=== PATIENT | male | born 1995 | race Caucasian/White ===

== ENCOUNTER 2023-06-23 12:13 | Emergency (ER) | payer OTHER, SELFPAY ==
[2023-06-23 12:18] VITALS: BP 127/74; PULSE 80; RESP 18; TEMP 36.5; O2SAT 98; BMI 29.3
--- NOTE | 2023-06-23 12:39 | ED_ITS ---
HPI - Extremity Injury (Lower) General Chief Complaint: Extremity Pain/Injury, Lower Stated Complaint: infected toes on both feet Time Seen by Provider: 06/23/23 12:32 History of Present Illness HPI Narrative: This 27-year-old male comes in reporting pain in both great toes that began over the past couple weeks. He has swelling around the toenails of both great toes and reports some purulent discharge in the left great toe. Prior to this he states that he has not had any problem with his toenails. He does wear shoes at work that may be exacerbating the problem. Related Data Previous Rx's Medication Instructions Recorded cephalexin 500 mg capsule 500 mg PO TID 5 days #15 caps 06/23/23 ketorolac 10 mg tablet 10 mg PO Q8H 5 days #15 tabs 06/23/23 Allergies Allergy/AdvReac Type Severity Reaction Status Date / Time No Known Drug Allergies Allergy Verified 06/23/23 12:24 Review of Systems Status of ROS: Reports: 10 or more systems reviewed and unremarkable except as noted in History and below Narrative: Constitutional: No fevers, no weight gain or loss. Eyes: No discharge. No vision changes. HENT: No congestion, no sore throat, no ear pain. Cardiovascular: No chest pain, no palpitations. Respiratory: No shortness of breath, no wheezes, no cough. Gastrointestinal: No abdominal pain, no vomiting, no diarrhea. Genitourinary: No dysuria, no hematuria. Musculoskeletal: Normal range of motion. Skin: No rashes, no pruritis. Neurological: No dizziness, weakness, sensory change, speech change. Endo/Heme/Allergies: No bruising or bleeding. No polydipsia. Pysch: no suicidality, no anxiety, no insomnia. All other systems reviewed and are negative. Exam Narrative: Exam Narrative: Constitutional: Well-developed, well-nourished, no acute distress. HEENT: Normocephalic, atraumatic. Neck: Normal range of motion. Nontender. Supple. Heart: Intact distal pulses. Lungs: No chest discomfort. No wheezes, rhonchi, or rales. Abdomen: Nontender. Back: Normal range of motion. Extremities: Normal range of motion. Both great toes have erythema and mild swelling. Toenails are appropriately trimmed back but appear to be cutting into his skin somewhat. Skin: Intact. No rash. Warm. No erythema or pallor. Neurologic: No altered sensation. No weakness. Alert and oriented. Psychiatric: No suicidality. No anxiety or depression. No insomnia. Nursing notes and vitals signs are reviewed. Const: Vital Signs, click to edit/add: Vital Signs - 24 hr 06/23/23 12:18 Temperature 97.7 F Pulse Rate [Pulse Oximeter] 80 Respiratory Rate 18 Blood Pressure [Ri ght Upper Arm] 127/74 Pulse Oximetry 98 Oxygen Delivery Me thod Room Air Course Vital Signs Vital signs: Initial Vital Signs Temperature 97.7 F 06/23/23 12:18 Temperature Source Temporal Artery Scan 06/23/23 12:18 Pulse Rate 80 06/23/23 12:18 Respiratory Rate 18 06/23/23 12:18 Blood Pressure 127/74 06/23/23 12:18 Blood Pressure Mean 91 06/23/23 12:18 Blood Pressure Position Sitting 06/23/23 12:18 Pulse Oximetry 98 06/23/23 12:18 Oxygen Delivery Method Room Air 06/23/23 12:18 Vital Signs Temperature 97.7 F 06/23/23 12:18 Pulse Rate 80 06/23/23 12:18 Respiratory Rate 18 06/23/23 12:18 Blood Pressure 127/74 06/23/23 12:18 Pulse Oximetry 98 06/23/23 12:18 Oxygen Delivery Method Room Air 06/23/23 12:18 Temperature 97.7 F 06/23/23 12:18 Pulse Rate 80 06/23/23 12:18 Respiratory Rate 18 06/23/23 12:18 Blood Pressure 127/74 06/23/23 12:18 Pulse Oximetry 98 06/23/23 12:18 Oxygen Delivery Method Room Air 06/23/23 12:18 MDM - Extremity Injury (Lower) MDM Narrative Medical decision making narrative: This patient is having pain in both great toes with some drainage in the left toe by his report. It seems likely that this is related to his foot apparel used at work. I advised him to reconsider what shoes he is wearing and perhaps use shoes that are bigger than what he has in order to take pressure off of his toes. But because of the report of some purulence from the left toe I did prescribe Keflex. He also received a prescription for Toradol. I advised him to follow-up with the [employer] supervisor if not improving. Discharge Plan Discharge Clinical Impression: Paronychia Patient Disposition: Home, Self-Care Condition: Unchanged Additional Instructions: Take medications as prescribed. Consider wearing different shoes that give more room for the feet and less pressure on the great toes. Follow-up with podiatry if not improving or worsening. Prescriptions: New ketorolac 10 mg tablet 10 mg PO Q8H 5 Days Qty: 15 0RF cephalexin 500 mg capsule 500 mg PO TID 5 Days Qty: 15 0RF Stand Alone Forms: MyHealth Info Instructions
== END 2023-06-23 13:16 | disposition home or self-care (01) ==
PROVIDERS: Emergency Provider Emergency Medicine Emergency Medical Services
DX: L03.032 Cellulitis of left toe (principal)
CPT/HCPCS: 99283; 99284